=== PATIENT | male | born 1985 | race Hispanic/Latino ===

== ENCOUNTER 2018-04-16 12:24 | Emergency (ER) | payer SELFPAY | END 2018-04-16 13:36 | disposition home or self-care (01) | LOC: EDH 12:24 | DX: G44.209 Tension-type headache, unspecified, not intractable (principal); Z72.0 Tobacco use ==

== ENCOUNTER 2022-01-02 11:32 | Emergency (ER) | payer MEDICAID ==
[~2022-01-02] VITALS: Ht 177.8 cm; Wt 67.6 kg
[2022-01-02 11:37] VITALS: BP 125/94
[2022-01-02 12:13] LABS: APPEARANCE,URINE Clear (CLEAR); BASOPHILS % (AUTO) 0.4 % (0.0-5.0); BILIRUBIN,URINE Negative (NEGATIVE); COLOR,URINE Yellow (YELLOW); EOSINOPHILS % (AUTO) 1.4 % (0.0-8.0); GLUCOSE, URINE (UA) Negative (NEGATIVE); HEMATOCRIT 47.9 % (42-54); KETONES,URINE Negative (NEGATIVE); LEUKOCYTE ESTERASE ,URINE Negative (NEGATIVE); LYMPHOCYTES % (AUTO) 11.8 % (21.0-51.0); MEAN CORPUSCULAR HGB CONC 33.8 g/dL (32.0-36.0); MEAN CORPUSCULAR VOLUME 94.5 fL (79-99); MONOCYTES % (AUTO) 6.9 % (3.0-13.0); NEUTROPHILS % (AUTO) 79.1 % (40.0-77.0); NITRATE,URINE Negative (NEGATIVE); OCCULT BLOOD,URINE Negative (NEGATIVE); PH,URINE 7.5 (5.0-8.0); PLATELET COUNT (AUTO) 213 K/uL (130-400); PROTEIN,URINE Negative (NEGATIVE); RED BLOOD CELL COUNT(AUTO) 5.07 MIL/uL (4.50-6.20); RED CELL DISTRIBUTION WIDTH 12.1 % (11.0-15.5); WHITE BLOOD COUNT (AUTO) 11.4 K/uL (4.8-10.8)
[2022-01-02 12:22] LABS: AMPHET/METH SCREEN,URINE NEGATIVE (NEGATIVE); BARBITURATE SCREEN, URINE NEGATIVE (NEGATIVE); BENZODIAZEPINES SCREEN,URINE NEGATIVE (NEGATIVE); CANNABINOID SCREEN,URINE NEGATIVE (NEGATIVE); COCAINE SCREEN,URINE NEGATIVE (NEGATIVE); OPIATE SCREEN,URINE NEGATIVE (NEGATIVE); PHENCYCLIDINE SCREEN,URINE NEGATIVE (NEGATIVE)
[2022-01-02 12:24] LABS: CREATININE 0.7 mg/dL (0.5-1.5); POTASSIUM 3.8 mmol/L (3.5-5.1)
[2022-01-02 12:28] LABS: BILIRUBIN,TOTAL 0.4 mg/dL (0.2-1.0)
[2022-01-02] MEDS ORDERED: MORPHINE 4 MG SYG IVP ONE (12:30)
[2022-01-02] MEDS ORDERED: ONDANSETRON 4MG INJ IVP ONE (12:30)
[2022-01-02] MEDS ORDERED: 0.9%NACL 1000ML 1,000 ML IV ONE (12:30)
[2022-01-02] MEDS ORDERED: IOHEXOL-350 75 ML VIAL IV ONE (12:47)
[2022-01-02] MEDS ORDERED: METOCLOPRAMIDE 10 MG/2 ML VIAL IVP ONE (14:00)
[2022-01-02] MEDS ORDERED: DiphenhydrAMINE HCL 50 MG/ML VIAL IV ONE (14:00)
[2022-01-02] MEDS ORDERED: DICYCLOMINE 20MG (10MG/ML) AMP IM STA (14:00)
[2022-01-02] MEDS ORDERED: BACI1TAB3 PO (14:47)
[2022-01-02] MEDS ORDERED: DICY20TA2 PO (14:47)
[2022-01-02] MEDS ORDERED: ONDA4TAB10 PO (14:47)
== END 2022-01-02 15:13 | disposition home or self-care (01) ==
LOC: EDH 11:32
DX: K52.9 Noninfective gastroenteritis and colitis, unspecified (principal)
CPT/HCPCS: 36415; 71045; 74177; 80053; 80305; 81003; 84484; 85025; 93005; 96361; 96372; 96374; 96375; 99285; J0500; J1200; J2270; J2405; J2765; J7030; Q9967